=== PATIENT | female | born 1945 | race Caucasian/White ===

== ENCOUNTER 2017-01-26 08:46 | Emergency (ER) | payer OTHER ==
[~2017-01-26] VITALS: Ht 162.6 cm; Wt 54.4 kg
--- NOTE | 2017-01-26 08:50 | NUR ---
PT REC'D TO ER VIA EMS PT SOB HX COPD SMOKER COUGHING ON O2 MONITORS APPLIED AWAITING EVALUATION BY ER PROVIDER.
[2017-01-26] MEDS ORDERED: Magnesium 1GM/D5W 100ML PREMIX 200 ML IV ONE (08:53)
[2017-01-26] MEDS ORDERED: methylPREDNISolone SOD SUCC 125 MG/2ML VIAL IV ONE (09:00)
[2017-01-26] MEDS ORDERED: IV NS 0.9% 1,000 ML BAG IV ONE (09:00)
[2017-01-26] MEDS ORDERED: IPRATROPIUM NEB FS 0.5 MG/2.5 ML AMPUL.NEB NEB ONE (09:00)
[2017-01-26] MEDS ORDERED: ALBUTEROL FS 2.5 MG/3 ML VIAL.NEB CONTNEB ONE (09:00)
--- NOTE | 2017-01-26 09:01 | NUR ---
STPT LABS DRAWN SENT OT LAB VSS O2 97 N/C STATEDFEELING BETTER
[2017-01-26] MEDS ORDERED: methylPREDNISolone SOD SUCC 125 MG/2ML VIAL ONE (09:03)
[2017-01-26] MEDS ORDERED: Magnesium 1GM/D5W 100ML PREMIX 100 ML IV ONE (09:03)
[2017-01-26 09:15] LABS: ABG BASE EXCESS 1.6 mmol/L; ABG OXYGEN SATURATION 90.5 % (92.0-98.5); ABG PCO2 34.5 mmHg (35.0-45.0); ABG PH 7.474 (7.350-7.450); AaDO2 114.4 mmHg; MetHb 0.3 % (0.0-1.5); O2Hb 89.3 % (94.0-97.0); SITE, ABG Right Radial; VENT MODE, BG N/C
[2017-01-26] MEDS ORDERED: ALBUTEROL FS 2.5 MG/3 ML VIAL.NEB ONE (09:16)
[2017-01-26] MEDS ORDERED: IPRATROPIUM NEB FS 0.5 MG/2.5 ML AMPUL.NEB ONE (09:16)
--- NOTE | 2017-01-26 09:16 | NUR ---
PT LABS DRAWN SENT ABG DONE TOLERATEDD WELL PROD COUGH 4 L N/C 94 . RT GIVING TX XRAY DONE . RAPID INFLU DONE
[2017-01-26 09:17] LABS: BASOPHILS # (AUTO) 0.1 /CMM (0.0-0.2); BASOPHILS % (AUTO) 0.4 % (0.0-2.0); EOSINOPHILS % (AUTO) 0.2 % (0.0-6.0); HEMATOCRIT 42 % (33-45); HEMOGLOBIN 13.9 g/dL (11.5-14.8); LYMPHOCYTES # (AUTO) 2.7 /CMM (0.8-4.8); LYMPHOCYTES % (AUTO) 16.1 % (20.0-44.0); MEAN CORPUSCULAR HEMOGLOBIN 28 PG (26.0-33.0); MEAN CORPUSCULAR HGB CONC 33 g/dl (31.0-36.0); MEAN CORPUSCULAR VOLUME 85 fL (82-100); MONOCYTES # (AUTO) 1.3 /CMM (0.1-1.30); MONOCYTES % (AUTO) 7.7 % (2.0-12.0); NEUTROPHILS # (AUTO) 12.5 /CMM (1.8-8.9); NEUTROPHILS % (AUTO) 75.6 % (43.0-81.0); PLATELET COUNT (AUTO) 292 /CMM (150-450); RED BLOOD CELL COUNT(AUTO) 4.97 MIL/uL (4.0-5.2); WHITE BLOOD COUNT (AUTO) 16.6 K/uL (4.3-11.0)
[2017-01-26 09:30] LABS: CALCIUM, SERUM 8.6 mg/dL (8.5-10.1); CARBON DIOXIDE 25 mmol/L (21-32); CHLORIDE 102 mmol/L (98-107); GLUCOSE 146 mg/dL (74-106); POTASSIUM 4.2 mmol/L (3.5-5.1); SODIUM SERUM 137 mmol/L (136-145); UREA NITROGEN, BLOOD 17 mg/dL (7-18)
[2017-01-26 09:36] LABS: ALANINE AMINOTRANSFERASE 17 U/L (12-78); ALBUMIN 3.5 g/dL (3.4-5.0); ALKALINE PHOSPHATASE 155 U/L (46-116); ASPARTATE AMINOTRANSFERASE 18 U/L (15-37); BILIRUBIN,DIRECT 0.1 mg/dL (0.0-0.2); BILIRUBIN,TOTAL 0.5 mg/dL (0.2-1.0)
[2017-01-26 09:38] LABS: TROPONIN I < 0.017 ng/mL (0.00-0.056)
--- NOTE | 2017-01-26 10:44 | NUR ---
[facility] CALLED [phone]
[2017-01-26 11:14] VITALS: BP 106/59
--- NOTE | 2017-01-26 12:02 | NUR ---
PTAMB TO BR VOIDED BACK TO BED
--- NOTE | 2017-01-26 12:15 | NUR ---
[facility] [id number] TELE. NUMBER FOR REPORT [id number]. ACCEPTING MD DR PERALES.
--- NOTE | 2017-01-26 12:31 | NUR ---
PT STABLE FOR TRANSFER TO [facility] REPORT GIVEN FAMILY NOTIFIED
== END 2017-01-26 12:39 | disposition short-term general hospital (02) ==
LOC: ER 08:48
DX: J44.1 Chronic obstructive pulmonary disease with (acute) exacerbation (principal); R06.02 Shortness of breath; F17.200 Nicotine dependence, unspecified, uncomplicated; I10 Essential (primary) hypertension
CPT/HCPCS: 36415; 36600 ×2; 71010; 80048; 80076; 82803; 84484; 85025; 87804; 93005; 94640 ×2; 96365; 96375; 99285; A4606; J2930; J3475; J7030; 87400; Z7610

== ENCOUNTER 2018-11-15 20:24 | Emergency (ER) | payer OTHER ==
[~2018-11-15] VITALS: Ht 157.5 cm; Wt 59.0 kg
--- NOTE | 2018-11-15 20:37 | NUR ---
BIB RA FROM HOME. AAOX4. BREATHING DEEP AND LABORED. ON HHN ALBUTEROL TX WITH O2 FROM FIELD. C/O SOB SINCE 1 PM. REPORTS USING HER INHALER WITHOUT RELIEF. PT NOTED WITH WHEEZING. TO ER BED 11. PLACED ON O2 VIA NC @ 2LPM WITH O2 SAT OF 95%. AT BEDSIDE. AWAITING ORDERS.
--- NOTE | 2018-11-15 20:38 | NUR ---
IV LINE ORESET UPON ARRIVAL ON L WRIST 18G. BLOOD DRAWN AND GIVEN TO RETAIL PLANNER AT BEDSIDE
[2018-11-15] MEDS ORDERED: ALBUTEROL FS 2.5 MG/3 ML VIAL.NEB ONE (20:46)
[2018-11-15] MEDS ORDERED: IPRATROPIUM NEB FS 0.5 MG/2.5 ML AMPUL.NEB ONE (20:46)
[2018-11-15 20:50] LABS: BASOPHILS # (AUTO) 0.1 /CMM (0.0-0.2); BASOPHILS % (AUTO) 0.9 % (0.0-2.0); EOSINOPHILS % (AUTO) 4.2 % (0.0-6.0); HEMATOCRIT 38 % (33-45); HEMOGLOBIN 12.2 g/dL (11.5-14.8); LYMPHOCYTES % (AUTO) 25.7 % (20.0-44.0); MEAN CORPUSCULAR HGB CONC 33 g/dl (31.0-36.0); MEAN CORPUSCULAR VOLUME 87 fL (82-100); MONOCYTES # (AUTO) 0.5 /CMM (0.1-1.30); MONOCYTES % (AUTO) 6.8 % (2.0-12.0); NEUTROPHILS # (AUTO) 4.8 /CMM (1.8-8.9); NEUTROPHILS % (AUTO) 62.4 % (43.0-81.0); PLATELET COUNT (AUTO) 322 /CMM (150-450); RED BLOOD CELL COUNT(AUTO) 4.31 MIL/uL (4.0-5.2); WHITE BLOOD COUNT (AUTO) 7.7 K/uL (4.3-11.0)
[2018-11-15] MEDS ORDERED: methylPREDNISolone SOD SUCC 125 MG/2ML VIAL ONE (20:55)
--- NOTE | 2018-11-15 20:55 | NUR ---
SOLUMEDROL TAKEN FROM [facility] D/T NOT AVAILABLE IN OMNICEL IN ER.
--- NOTE | 2018-11-15 20:56 | NUR ---
EKG DONE BY EMT
--- NOTE | 2018-11-15 20:56 | NUR ---
EKG AT BEDSIDE
[2018-11-15] MEDS ORDERED: ALBUTEROL FS 2.5 MG/3 ML VIAL.NEB CONTNEB ONE (21:00)
[2018-11-15] MEDS ORDERED: methylPREDNISolone SOD SUCC 125 MG/2ML VIAL IV ONE (21:00)
[2018-11-15] MEDS ORDERED: IPRATROPIUM NEB FS 0.5 MG/2.5 ML AMPUL.NEB NEB ONE (21:00)
[2018-11-15 21:12] LABS: ALANINE AMINOTRANSFERASE 18 U/L (12-78); ALBUMIN 3.3 g/dL (3.4-5.0); ALKALINE PHOSPHATASE 186 U/L (46-116); ASPARTATE AMINOTRANSFERASE 17 U/L (15-37); B-TYPE NATRIURETIC PEPTIDE 1159 PG/ML (0-125); BILIRUBIN,TOTAL 0.2 mg/dL (0.2-1.0); CALCIUM, SERUM 8.4 mg/dL (8.5-10.1); CARBON DIOXIDE 21 mmol/L (21-32); CHLORIDE 109 mmol/L (98-107); CREATININE 1.8 mg/dL (0.6-1.3); GLUCOSE 118 mg/dL (74-106); POTASSIUM 3.8 mmol/L (3.5-5.1); SODIUM SERUM 142 mmol/L (136-145); TOTAL PROTEIN, SERUM 7.3 g/dL (6.4-8.2); UREA NITROGEN, BLOOD 16 mg/dL (7-18)
--- NOTE | 2018-11-15 21:43 | NUR ---
CALLED [facility] TO INITIATE TRANSFER
[2018-11-15 23:12] VITALS: BP 110/55
--- NOTE | 2018-11-15 23:46 | NUR ---
PT TO BE TRANSFERRED TO [facility] BED 2305 A NUMBER FOR REPORT: ACCEPTING MD: DR. LENARD JAMISON WITH [facility] TRANSPORTATION: 0000
--- NOTE | 2018-11-15 23:57 | NUR ---
REPORT GIVEN TO JACKSON GALINDO AT [facility] FOR MORE. P/U ETA 0000
--- NOTE | 2018-11-16 00:10 | NUR ---
[facility] AT BEDSIDE FOR TRANPORT TO [facility] W/ 3 AMBULANCE STAFF. PT IS IN STABLE CONDITION FOR TRANPORT, NO RESP DISTRESS NOTED, BREATHING EVEN AND UNLABORED / VIA NC @ 2LPM.
== END 2018-11-16 00:15 | disposition short-term general hospital (02) ==
LOC: ER 20:32
DX: J44.1 Chronic obstructive pulmonary disease with (acute) exacerbation (principal); I10 Essential (primary) hypertension; F32.9 Major depressive disorder, single episode, unspecified; Z90.89 Acquired absence of other organs; Z98.890 Other specified postprocedural states; Z87.891 Personal history of nicotine dependence
CPT/HCPCS: 36415; 71045; 80048; 80076; 83880; 84484; 85025; 93005; 94644; 96374; 99285; J2930

== ENCOUNTER 2019-09-12 13:41 | Inpatient (IN) | payer OTHER ==
[~2019-09-12] VITALS: Ht 160 cm; Wt 61.2 kg
--- NOTE | 2019-09-12 13:45 | NUR ---
LAZARO GARCIA 89 From Home "Coughing since Saturday Worse this am", TO ER BED 6, ISOLATION PREACAUTION APPLIED. LOW O2 SATURATION NOTED AT 85%, PLACED ON 3LPM O2 VIA NASAL CANNULA, OXYGEN SAT WENT UP TO 92%. CHANGED TO HOSP GOWN, WARM BLANKET PROVIDED. AWAITING MD MARINA
--- NOTE | 2019-09-12 13:46 | NUR ---
DR PERALES AT BEDSIDE
[2019-09-12 14:15] LABS: BASOPHILS # (AUTO) 0.1 /CMM (0.0-0.2); BASOPHILS % (AUTO) 0.7 % (0.0-2.0); EOSINOPHILS % (AUTO) 2.7 % (0.0-6.0); HEMATOCRIT 43 % (33-45); HEMOGLOBIN 13.9 g/dL (11.5-14.8); LYMPHOCYTES # (AUTO) 1.4 /CMM (0.8-4.8); LYMPHOCYTES % (AUTO) 18.1 % (20.0-44.0); MEAN CORPUSCULAR HGB CONC 32 g/dl (31.0-36.0); MEAN CORPUSCULAR VOLUME 87 fL (82-100); MONOCYTES # (AUTO) 0.8 /CMM (0.1-1.30); MONOCYTES % (AUTO) 10.4 % (2.0-12.0); NEUTROPHILS # (AUTO) 5.3 /CMM (1.8-8.9); NEUTROPHILS % (AUTO) 68.1 % (43.0-81.0); PLATELET COUNT (AUTO) 296 /CMM (150-450); RED BLOOD CELL COUNT(AUTO) 4.93 MIL/uL (4.0-5.2); WHITE BLOOD COUNT (AUTO) 7.8 K/uL (4.3-11.0)
[2019-09-12 14:34] LABS: CALCIUM, SERUM 8.6 mg/dL (8.5-10.1); CARBON DIOXIDE 25 mmol/L (21-32); CHLORIDE 105 mmol/L (98-107); GLUCOSE 122 mg/dL (74-106); POTASSIUM 3.4 mmol/L (3.5-5.1); SODIUM SERUM 142 mmol/L (136-145)
[2019-09-12 14:35] LABS: UREA NITROGEN, BLOOD 14 mg/dL (7-18)
--- NOTE | 2019-09-12 14:40 | NUR ---
RAPID INFLUENZA, COVID AND RESPIRATORY PROFILE SWAB DONE AND SENT TO LAB
[2019-09-12 14:41] LABS: D-DIMER 0.79 mg/L(FEU (0.17-0.50)
[2019-09-12 14:42] LABS: BILIRUBIN,TOTAL 0.3 mg/dL (0.2-1.0)
[2019-09-12 14:43] LABS: ALANINE AMINOTRANSFERASE 22 U/L (12-78); ALBUMIN 3.8 g/dL (3.4-5.0); ALKALINE PHOSPHATASE 218 U/L (46-116); ASPARTATE AMINOTRANSFERASE 18 U/L (15-37); B-TYPE NATRIURETIC PEPTIDE 1027 PG/ML (0-125); TOTAL PROTEIN, SERUM 8.3 g/dL (6.4-8.2)
--- NOTE | 2019-09-12 15:15 | NUR ---
CALLED [facility], AWAITING MD CALL BACK
[2019-09-12] MEDS ORDERED: methylPREDNISolone SOD SUCC 125 MG/2ML VIAL ONE (15:28)
[2019-09-12] MEDS ORDERED: methylPREDNISolone SOD SUCC 125 MG/2ML VIAL IV ONE (15:30)
[2019-09-12] MEDS ORDERED: ALBUTEROL FS 2.5 MG/3 ML VIAL.NEB NEB ONE (15:30)
[2019-09-12] MEDS ORDERED: IPRATROPIUM NEB FS 0.5 MG/2.5 ML AMPUL.NEB NEB ONE (15:30)
[2019-09-12 15:45] LABS: CREATINE KINASE, TOTAL 105 U/L (26-192); FERRITIN 65 ng/mL (8-388)
--- NOTE | 2019-09-12 16:02 | NUR ---
PATIENT NOT ABLE TO PROVIDE URINE SAMPLE, MD SINGLETON
[2019-09-12 16:03] LABS: C-REACTIVE PROTEIN 2.8 mg/dL (0.0-0.9)
--- NOTE | 2019-09-12 17:09 | NUR ---
REPORT GIVEN TO DICKSON PAZ OF TELE
[2019-09-12] MEDS ORDERED: IPRATROPIUM/ALBUTEROL INHALER IH SCH (17:25)
[2019-09-12] MEDS ORDERED: GUAIFENESIN/D-METHORPHAN HB 5 ML UDC ONE (17:25)
[2019-09-12] MEDS ORDERED: IPRATROPIUM/ALBUTEROL INHALER IH PRN (17:30)
[2019-09-12] MEDS ORDERED: GUAIFENESIN/CODEINE 10 ML UDC PO PRN (17:30)
[2019-09-12] MEDS: IPRATROPIUM/ALBUTEROL INHALER IH SCH (18:04)
--- NOTE | 2019-09-12 18:19 | NUR ---
ALONSO MCELROY AT BEDSIDE
[2019-09-12 18:24] LABS: ABG BASE EXCESS -9.9 mmol/L; ABG PCO2 50.5 mmHg (35.0-45.0); ABG PH 7.183 (7.350-7.450); ABG PO2 68.6 mmHg (75.0-100.0); AaDO2 71.5 mmHg; COHb 0.8 % (0.5-1.5); MetHb 0.4 % (0.0-1.5); O2Hb 88.9 % (94.0-97.0); SITE, ABG Right Radial; VENT MODE, BG 2 LPM
[2019-09-12 18:26] LABS: APPEARANCE,URINE Clear (CLEAR); BILIRUBIN,URINE Negative (NEGATIVE); BLOOD, URINE Negative Ery/uL (NEGATIVE); COLOR,URINE Yellow (YELLOW); KETONES,URINE Negative (NEGATIVE); LEUKOCYTE ESTERASE ,URINE Negative (NEGATIVE); NITRITE, URINE Negative (NEGATIVE); PH,URINE 6.5 (5.0-8.0); PROTEIN,URINE Negative (NEGATIVE); UGLUCOSE Negative (NEGATIVE); UROBILINOGEN,URINE 0.2 EU/dL (0.2)
[2019-09-12 18:50] VITALS: BP 142/66
--- NOTE | 2019-09-12 18:50 | NUR ---
LANDSCAPE ARCHITECT AND PLANNER NOTE PATIENT ARRIVED ON UNIT FROM ER BY MILLIE AT 1850. PATIENT WALKED TO BED WITH STANDBY ASSISTANCE. PATIENT IN NO ACUTE DISTRESS. NO SOB NOTED. PATIENT BREATHING IS EVEN AND UNLABORED. PATIENT BREATHING ON 3L NC SATURATING AT 92% SPO2. PATIENT ON CARDIAC MONITORING READING SINUS RHYTHM HR 94, PATIENT BP 142/66, RR 18. PATIENT SAFETY PRECAUTIONS IN PLACE. INSTRUCTED TO USE CALL LIGHT FOR ASSISTANCE. ISOLATION PRECAUTIONS IN PLACE. PATIENT HOB IS ELEVATED. BED ALARM IS ON. PATIENT BED IS LOCKED AND IN LOWEST POSITION. CALL LIGHT WITHIN REACH. NOTIFIED GRAHAM MCELROY OF PATIENT ARRIVAL. WILL ENDORSE ADMISSION AND CONTINUATION OF CARE TO PM SHIFT.
--- NOTE | 2019-09-12 19:25 | NUR ---
RN PM OPENING NOTE REPORT RECIEVED FROM DICKSON PAZ. PATIENT IS A NEW ADMISSION. PATIENT BREATHING IS EVEN AND UNLABORED. PATIENT BREATHING ON 3L NC SAFETY PRECAUTIONS IN PLACE. PATIENT VERBALZIED UNDERDSTANDING TO USE CALL LIGHT FOR ASSISTANCE. ISOLATION PRECAUTIONS IN PLACE FOR R/O COVID. PATIENT HOB IS ELEVATED. PATIENT DENIES ANY HISTORY OF FALLS. REPORTS SHE IS AMBULATORY. PATIENT BED IS LOCKED AND IN LOWEST POSITION. CALL LIGHT WITHIN REACH. NEW ORDERS RECIEVED FOR ADMISSION. WILL CONT TO MONITOR.
[2019-09-12] MEDS ORDERED: ZOLPIDEM TARTRATE 5 MG TABLET PO PRN (19:30)
[2019-09-12] MEDS ORDERED: Z GUARD REMEDY 2 OZ OINT TP PRN (19:30)
[2019-09-12] MEDS ORDERED: MAGNESIUM HYDROXIDE 30 ML UDC PO PRN (19:30)
[2019-09-12] MEDS ORDERED: IPRATROPIUM NEB FS 0.5 MG/2.5 ML AMPUL.NEB NEB PRN (19:30)
[2019-09-12] MEDS ORDERED: HYDROCODONE/APAP 5/325MG 1 EACH TABLET PO PRN (19:30)
[2019-09-12] MEDS ORDERED: ALBUTEROL HALF STRENGTH 1.25 MG/3 ML VIAL.NEB NEB PRN (19:30)
[2019-09-12] MEDS ORDERED: ONDANSETRON HCL/PF 4 MG/2 ML VIAL IVP PRN (19:30)
[2019-09-12 20:00] VITALS: BP 138/88
--- NOTE | 2019-09-12 20:00 | NUR ---
ADMISSION ASSESSMENT PERFORMED.
[2019-09-12] MEDS: methylPREDNISolone SOD SUCC 40 MG/ML VIAL IV SCH (20:57)
[2019-09-12] MEDS: ACETAMINOPHEN 325 MG TABLET PO PRN (20:59)
[2019-09-12] MEDS: POTASSIUM CHLORIDE 20 MEQ TAB.PRT.SR PO ONE ×2 (22:18→22:50)
[2019-09-12] MEDS: IV NS 0.9% 1,000 ML IV PRN (22:18)
[2019-09-12] MEDS ORDERED: POTASSIUM CHLORIDE 20 MEQ TAB.PRT.SR PO ONE (22:48)
[2019-09-13 00:30] VITALS: BP 143/82
[2019-09-13] MEDS: IPRATROPIUM/ALBUTEROL INHALER IH SCH ×4 (01:48→18:43)
[2019-09-13] MEDS ORDERED: PNEUMOCOCCAL 23-VAL P-SAC VAC 0.5 ML VIAL SQ ONE (03:00)
[2019-09-13 04:00] VITALS: BP 135/73
[2019-09-13] MEDS: methylPREDNISolone SOD SUCC 40 MG/ML VIAL IV SCH ×3 (04:04→18:42)
[2019-09-13] MEDS: ACETAMINOPHEN 325 MG TABLET PO PRN (05:53)
--- NOTE | 2019-09-13 06:37 | NUR ---
RN PM CLOSING NOTE PATIENT SEEN SITTING IN BED ON 3LNC DENIES SOB. PATIENT HAS 20 GAUGE IV TO RIGHT HAND INFUSING NS AT 50 ML PER HOUR.. DIE CASTING MACHINE SETTER READS SR AT 90. IN NO APPARENT DISTRESS. BED DOWN LOCKED CALL LIGHT SEEN WITHIN REACH.
[2019-09-13 06:57] LABS: BASOPHILS % (AUTO) 0.1 % (0.0-2.0); HEMATOCRIT 40 % (33-45); HEMOGLOBIN 12.5 g/dL (11.5-14.8); LYMPHOCYTES # (AUTO) 0.7 /CMM (0.8-4.8); LYMPHOCYTES % (AUTO) 11.1 % (20.0-44.0); MEAN CORPUSCULAR HGB CONC 32 g/dl (31.0-36.0); MEAN CORPUSCULAR VOLUME 87 fL (82-100); MONOCYTES # (AUTO) 0.1 /CMM (0.1-1.30); MONOCYTES % (AUTO) 1.6 % (2.0-12.0); NEUTROPHILS # (AUTO) 5.4 /CMM (1.8-8.9); NEUTROPHILS % (AUTO) 87.2 % (43.0-81.0); PLATELET COUNT (AUTO) 260 /CMM (150-450); RED BLOOD CELL COUNT(AUTO) 4.51 MIL/uL (4.0-5.2); WHITE BLOOD COUNT (AUTO) 6.1 K/uL (4.3-11.0)
[2019-09-13 07:25] LABS: CHOLESTEROL 174 mg/dL (<200); HDL CHOLESTEROL 78 mg/dL (40-60); LDL 82 mg/dL (0-99); TRIGLYCERIDES 48 mg/dL (30-150)
[2019-09-13 07:46] LABS: CALCIUM, SERUM 9.1 mg/dL (8.5-10.1); CARBON DIOXIDE 18 mmol/L (21-32); CHLORIDE 105 mmol/L (98-107); CREATININE 1.8 mg/dL (0.6-1.3); GLUCOSE 146 mg/dL (74-106); MAGNESIUM 2.1 mg/dL (1.8-2.4); PHOSPHORUS 2.7 mg/dL (2.5-4.9); POTASSIUM 4.7 mmol/L (3.5-5.1); SODIUM SERUM 136 mmol/L (136-145); UREA NITROGEN, BLOOD 18 mg/dL (7-18)
[2019-09-13 08:00] VITALS: BP 140/65
--- NOTE | 2019-09-13 08:00 | NUR ---
RN NOTES RECEIVED PATIENT IN THE BED A/O X3 [place] SPEAK FEMALE ON ISOLATION R/O COVID-19. PATIENT HAS NO ACUTE RESPIRATORY DISTRESS, WAS COMPLAINING OF GOUGE BUT NO DISCHARGE. PATIENT ON O2-3L, REFUSED PAIN. IV ACCESS ON RIGHT HAND INTACT INFUSING NS AT 50 ML/HR INTACT PATENT. PATIENT AMBULATORY SELF CARE. NEEDS ATTENDED AND ANTICIPATED, CALL LIGHT WITHIN TO REACH. CONTINUED MONITORING.
[2019-09-13 09:52] LABS: ABG BASE EXCESS -7.5 mmol/L; ABG OXYGEN SATURATION 94.2 % (92.0-98.5); ABG PCO2 32.7 mmHg (35.0-45.0); ABG PH 7.339 (7.350-7.450); ABG PO2 70.9 mmHg (75.0-100.0); AaDO2 39.7 mmHg; COHb 0.4 % (0.5-1.5); MetHb 0.4 % (0.0-1.5); O2Hb 93.4 % (94.0-97.0); SITE, ABG Left Radial; VENT MODE, BG room air
--- NOTE | 2019-09-13 11:00 | NUR ---
RN NOTES ADMINISTERED SCHEDULED MEDICATION, V/S STABLE, SEEN HOSPITALIST LILIBETH MACKEY. PER HOSPITALIST CONTINUE HOSPITALIZATION ONE MORE DAY. ORDER TAKEN AND CARRIED OUT.
[2019-09-13 12:00] VITALS: BP 142/69
[2019-09-13] MEDS: hydrALAZINE HCL 50 MG TABLET PO SCH ×2 (12:50→16:38)
[2019-09-13 16:00] VITALS: BP 129/67
[2019-09-13] MEDS ORDERED: ACETAMINOPHEN 325 MG TABLET PO PRN (16:30)
[2019-09-13] MEDS ORDERED: GUAIFENESIN 300 MG/15 ML UDC PO PRN (16:30)
--- NOTE | 2019-09-13 16:37 | NUR ---
rn notes Robitussin 300 mg po prn for sore throat per patient request.
--- NOTE | 2019-09-13 18:30 | NUR ---
RN NOTES PATIENT STABLE ADMINISTERED SCHEDULED MEDICATION, V/S STABLE ON O2-3LNC, PATIENT AMBULATORY SELF CARE,INFUSING NS AT 50 ML/HR ON RIGHT FA INTACT. REFUSED PAIN. MEDICATION WERE ADMINISTERED FOR SORE THROAT EFFECTIVE. CALL LIGHT WITHIN TO REACH. ENDORSED ONCOMING NURSE FOLLOW PLAN OF CARE.
--- NOTE | 2019-09-13 19:30 | NUR ---
PIERCING SPECIALIST NOTE RECEIVED PATIENT ALERT AWAKE ORIENTED X4 RESTING IN BED. BREATHING NORMAL NO SOB NOTED. NO S/S OF DISTRESS NOTED. DENIES ANY PAIN OR DISCOMFORT AT THIS TIME. ON ISOLATION FOR R/O COVID. SKIN WARM AND DRY TO TOUCH. IV SITE LFA G#22 PATENT INTACT FLUSHED WELL. ALL SAFETY MEASURES IN PLACE, CALL LIGHT WITHIN REACH, SIDE RAILS UP X2. WILL CONT TO MONITOR.
[2019-09-13 20:00] VITALS: BP 146/68
[2019-09-13] MEDS: IV NS 0.9% 1,000 ML IV PRN (22:45)
[2019-09-14] VITALS (7 sets, daily range): BP systolic 126–151; BP diastolic 60–81
[2019-09-14] MEDS: IPRATROPIUM/ALBUTEROL INHALER IH SCH (02:12)
[2019-09-14] MEDS: methylPREDNISolone SOD SUCC 40 MG/ML VIAL IV SCH ×2 (02:46→11:51)
--- NOTE | 2019-09-14 06:27 | NUR ---
CLINICAL REHAB SPECIALIST NOTE PATIENT RESTED COMFORTABLY IN BED. BREATHING NORMAL NO SOB NOTED. NO S/S OF DISTRESS NOTED. DENIES ANY PAIN OR DISCOMFORT. ON TELE MONITORING SR IN 90'S. ON ISOLATION FOR R/O COVID. SKIN WARM AND DRY TO TOUCH. ALL SAFETY MEASURES IN PLACE, CALL LIGHT WITHIN REACH, SIDE RAILS UP X2. WILL ENDORSE TO AM NURSE FOR MORE.
--- NOTE | 2019-09-14 07:30 | NUR ---
BUILDING CUSTODIAL SUPERVISOR AM NOTE RECEIVED PATIENT ALERT AWAKE ORIENTED X4 RESTING IN BED. BREATHING NORMAL NO SOB NOTED. NO S/S OF DISTRESS NOTED. DENIES ANY PAIN OR DISCOMFORT AT THIS TIME. ON ISOLATION FOR R/O COVID. SKIN WARM AND DRY TO TOUCH. IV SITE LFA G#22 PATENT INTACT FLUSHED WELL. ALL SAFETY MEASURES IN PLACE, CALL LIGHT WITHIN REACH, SIDE RAILS UP X2. WILL CONT TO MONITOR.
[2019-09-14] MEDS: hydrALAZINE HCL 50 MG TABLET PO SCH ×2 (08:48→13:47)
--- NOTE | 2019-09-14 09:30 | NUR ---
MANAGER CLINICAL PHARMACY NOTES DUE MEDS GIVEN
[2019-09-14] MEDS ORDERED: HYDR-4077 PO (11:22)
[2019-09-14] MEDS ORDERED: GUAI100S11 PO (11:22)
[2019-09-14] MEDS ORDERED: METH4TAB17 PO (11:22)
[2019-09-14] MEDS ORDERED: CITR15SO PO (11:22)
[2019-09-14] MEDS ORDERED: IPRA4AER IH (11:27)
[2019-09-14] MEDS ORDERED: CITRIC ACID/SODIUM CITRATE (BICITRA)15 ML UDC PO SCH (13:00)
[2019-09-14 13:33] LABS: CALCIUM, SERUM 8.8 mg/dL (8.5-10.1); CARBON DIOXIDE 23 mmol/L (21-32); CHLORIDE 104 mmol/L (98-107); CREATININE 1.8 mg/dL (0.6-1.3); GLUCOSE 112 mg/dL (74-106); POTASSIUM 4.2 mmol/L (3.5-5.1); SODIUM SERUM 138 mmol/L (136-145); UREA NITROGEN, BLOOD 28 mg/dL (7-18)
--- NOTE | 2019-09-14 15:50 | NUR ---
TIMBER HAND NOTES PATIENT DISCHARGED TO HOME TODAY PER MD STABLE CONDITION. PROVIDED DC INSTRUCTIONS, HEALTH TEACHINGS AND MED RECON LIST. PATIENT TO FOLLOW UP WITH PCP IN 1-2 WEEKS AND WILL MAKE OWN APPOINTMENT. LEFT FA IV ACCESS REMOVED, NO BLEEDING, DRESSING APPLIED. ALL BELONGINGS CHECKED AND RETURNED. PER PATIENT, HER [place] ID, MEDICARE CARD AND DESIGN TEACHER'S LICENSE ARE ALL MISSING. CHARGE NURSE SOON AWARE, WENT TO LOOK AT ER ADMISSION, NOT THERE. OTHERWISE ALL PAPERS SIGNED. ACCOMPANIED TO LOBBY VIA WHEELCHAIR AND WILL BE TAKEN HOME BY SARA MOON. Addendum: 09/14/19 at 1736 by BRITTANY COSTA RN ADDENDUM PATIENT REFUSED PNEUMONIA VACCINE. STATED, SHE RECEIVED IT ALREADY BUT CANNOT REMEMBER. SHE SAID SHE WILL ASK HER PRIMARY DOCTOR WHEN SHE DO HER FOLLOW UP CHECK UP
== END 2019-09-14 15:50 | disposition home or self-care (01) | DRG 190 ==
LOC: ER 13:41 → TELE1 17:12
PROVIDERS: ADMIT Nurse Practitioner Acute Care; ATTEND Nurse Practitioner Acute Care
DX: J44.1 Chronic obstructive pulmonary disease with (acute) exacerbation (principal); N17.0 Acute kidney failure with tubular necrosis; J96.01 Acute respiratory failure with hypoxia; N13.30 Unspecified hydronephrosis; E87.2 Acidosis; I12.9 Hypertensive chronic kidney disease with stage 1 through stage 4 chronic kidney disease, or unspecified chronic kidney disease; N18.9 Chronic kidney disease, unspecified; K59.00 Constipation, unspecified; E87.6 Hypokalemia; Z87.891 Personal history of nicotine dependence; Z90.5 Acquired absence of kidney; I45.81 Long QT syndrome; I73.9 Peripheral vascular disease, unspecified
CPT/HCPCS: 36415; 36600; 71045-TC; 80048-TC; 80053-TC; 80061-TC; 81000-TC; 82550-TC; 82728-TC; 82803-TC; 83605-TC; 83615-TC; 83735-TC; 83880; 84100-TC; 84484-TC; 85025-TC; 85378-TC; 85730-TC; 86140-TC; 87040-TC; 87081-TC; 87086-TC; G0378; J2920; J2930; J7030

== ENCOUNTER 2023-05-18 10:37 | Emergency (ER) | payer OTHER ==
[~2023-05-18] VITALS: Ht 165.1 cm; Wt 60.8 kg
[~2023-05-18 10:37] MED LIST: CITR15SO PO; GUAI100S11 PO; HYDR-4077 PO; IPRA4AER IH; METH4TAB17 PO
[2023-05-18] MEDS ORDERED: IPRATROPIUM NEB FS 0.5 MG/2.5 ML AMPUL.NEB NEB ONE (11:00)
[2023-05-18] MEDS ORDERED: ALBUTEROL FS 2.5 MG/3 ML VIAL.NEB NEB ONE (11:00)
[2023-05-18] MEDS ORDERED: MAG HYDROX/AL HYDROX/SIMETH 30 ML UDC PO ONE (11:00)
[2023-05-18] MEDS ORDERED: LIDOCAINE VISCOUS 2% UD 15 ML UDC MM ONE (11:00)
[2023-05-18] MEDS ORDERED: ALBUTEROL FS 2.5 MG/3 ML VIAL.NEB ONE (11:05)
[2023-05-18] MEDS ORDERED: IPRATROPIUM NEB FS 0.5 MG/2.5 ML AMPUL.NEB ONE (11:05)
[2023-05-18] MEDS ORDERED: LIDOCAINE VISCOUS 2% UD 15 ML UDC ONE (11:08)
[2023-05-18] MEDS ORDERED: MAG HYDROX/AL HYDROX/SIMETH 30 ML UDC ONE (11:08)
[2023-05-18 11:19] VITALS: O2SAT 96
[2023-05-18 11:52] VITALS: BP 120/75; TEMP 98.7; O2SAT 97
== END 2023-05-18 11:51 | disposition home or self-care (01) ==
LOC: ER 10:53
DX: J44.1 Chronic obstructive pulmonary disease with (acute) exacerbation (principal); I10 Essential (primary) hypertension; K21.9 Gastro-esophageal reflux disease without esophagitis; F17.200 Nicotine dependence, unspecified, uncomplicated; Z98.890 Other specified postprocedural states; Z79.899 Other long term (current) drug therapy

== ENCOUNTER 2023-07-27 10:00 | Emergency (ER) | payer OTHER ==
[~2023-07-27] VITALS: Ht 160 cm; Wt 54.0 kg
[2023-07-27] MEDS ORDERED: ONDANSETRON HCL/PF 4 MG/2 ML VIAL ONE (10:21)
[2023-07-27] MEDS ORDERED: MORPHINE SULFATE INJ 4 MG/ML DISP.SYRIN ONE (10:22)
[2023-07-27] MEDS ORDERED: hydrALAZINE HCL IV 20 MG VIAL IV ONE (10:30)
[2023-07-27] MEDS: MORPHINE SULFATE INJ 2 MG/ML DISP.SYRIN IV ONE ×2 (10:32→15:03)
[2023-07-27] MEDS: ONDANSETRON HCL/PF 4 MG/2 ML VIAL IVP ONE (10:32)
[2023-07-27 10:45] LABS: BASOPHILS # (AUTO) 0.1 K/uL (0.0-0.2); BASOPHILS % (AUTO) 0.5 % (0.0-2.0); HEMATOCRIT 32 % (33-45); HEMOGLOBIN 10.3 g/dL (11.5-14.8); LYMPHOCYTES % (AUTO) 6.9 % (20.0-44.0); MEAN CORPUSCULAR HEMOGLOBIN 30 PG (26.0-33.0); MEAN CORPUSCULAR HGB CONC 32 g/dl (31.0-36.0); MEAN CORPUSCULAR VOLUME 95 fL (82-100); MONOCYTES # (AUTO) 1.1 K/uL (0.1-1.30); MONOCYTES % (AUTO) 7.2 % (2.0-12.0); NEUTROPHILS # (AUTO) 12.8 K/uL (1.8-8.9); NEUTROPHILS % (AUTO) 85.4 % (43.0-81.0); PLATELET COUNT (AUTO) 300 K/uL (150-450); RED BLOOD CELL COUNT(AUTO) 3.42 MIL/uL (4.0-5.2); RED CELL DISTRIBUTION WIDTH 15.2 % (11.5-15.0); WHITE BLOOD COUNT (AUTO) 14.9 K/uL (4.3-11.0)
[2023-07-27 10:51] LABS: INR 0.98 (0.91-1.10); PARTIAL THROMBOPLASTIN TIME 25.5 SEC (24.3-34.3); PROTHROMBIN TIME 10.4 SECS (9.2-11.1)
[2023-07-27 10:51] LABS: APPEARANCE,URINE CLEAR (CLEAR); BILIRUBIN,URINE NEGATIVE (NEGATIVE); BLOOD, URINE NEGATIVE Ery/uL (NEGATIVE); COLOR,URINE YELLOW (YELLOW); KETONES,URINE TRACE mg/dL (NEGATIVE); LEUKOCYTE ESTERASE ,URINE NEGATIVE (NEGATIVE); NITRITE, URINE NEGATIVE (NEGATIVE); PH,URINE 5.5 (5.0-8.0); PROTEIN,URINE NEGATIVE (NEGATIVE); UGLUCOSE NEGATIVE (NEGATIVE); UROBILINOGEN,URINE 0.2 EU/dL (0.2)
[2023-07-27] MEDS ORDERED: HYDROMORPHONE 1 MG/1 ML DISP.SYRIN ONE (11:21)
[2023-07-27] MEDS: HYDROMORPHONE INJ 2 MG/ML DISP.SYRIN IV ONE (11:34)
[2023-07-27 14:08] LABS: ALANINE AMINOTRANSFERASE 16 U/L (12-78); ALBUMIN 3.4 g/dL (3.4-5.0); ALCOHOL, BLOOD < 3 mg/dL (0-10); ALKALINE PHOSPHATASE 112 U/L (46-116); ASPARTATE AMINOTRANSFERASE 20 U/L (15-37); BILIRUBIN,DIRECT 0.1 mg/dL (0.0-0.2); BILIRUBIN,TOTAL 0.6 mg/dL (0.2-1.0); CARBON DIOXIDE 14 mmol/L (21-32); CHLORIDE 102 mmol/L (98-107); CREATININE 1.9 mg/dL (0.6-1.3); GLUCOSE 211 mg/dL (74-106); POTASSIUM 5.4 mmol/L (3.5-5.1); SODIUM SERUM 134 mmol/L (136-145); TOTAL PROTEIN, SERUM 6.1 g/dL (6.4-8.2); UREA NITROGEN, BLOOD 27 mg/dL (7-18)
[2023-07-27] MEDS ORDERED: MORPHINE SULFATE INJ 2 MG/ML DISP.SYRIN ONE (15:01)
[2023-07-27 15:22] VITALS: BP 118/92; TEMP 98.2; O2SAT 100
== END 2023-07-27 15:50 | disposition short-term general hospital (02) ==
LOC: ER 10:00
DX: S72.142A Displaced intertrochanteric fracture of left femur, initial encounter for closed fracture (principal); I10 Essential (primary) hypertension; J44.9 Chronic obstructive pulmonary disease, unspecified; K21.9 Gastro-esophageal reflux disease without esophagitis; Z90.89 Acquired absence of other organs; Z20.822 Contact with and (suspected) exposure to COVID-19; W18.30XA Fall on same level, unspecified, initial encounter; Y93.89 Activity, other specified; Y92.89 Other specified places as the place of occurrence of the external cause; Y99.8 Other external cause status
CPT/HCPCS: 99285; 96374; 51701; 96375; 93005; 71045; 96376; 73503; 82140; 85025; 80048; 80076; 81003; 36415; 84484; 85730; 87426; 80320; J2270 ×2; J2405; J1170; 73502; G0480